=== PATIENT | male | born 1975 | race Caucasian/White ===

== ENCOUNTER 2021-06-06 08:55 | Emergency (ER) | payer OTHER ==
[2021-06-06] MEDS ORDERED: IBUPROFEN600 MG PO (10:34)
== END 2021-06-06 10:30 | disposition home or self-care (01) ==
LOC: ER1 08:55
DX: S60.222A Contusion of left hand, initial encounter (principal); W22.8XXA Striking against or struck by other objects, initial encounter
CPT/HCPCS: 73130; 99283